=== PATIENT | male | born 1975 | race Caucasian/White ===

== ENCOUNTER 2016-10-29 05:18 | Inpatient (IN) | payer BC ==
[~2016-10-29] VITALS: Ht 175.3 cm; Wt 79.4 kg
[~2016-10-29 05:18] MED LIST: INDERAL LA160 MG PO; PAXIL20 MG PO; ROXICODONE5 MG PO
[2016-10-29 05:46] VITALS: BP 145/89
[2016-10-29 12:00] VITALS: BP 125/79
[2016-10-29 15:57] VITALS: BP 115/64
[2016-10-29 20:14] VITALS: BP 108/57
[2016-10-30 04:38] VITALS: BP 105/56
[2016-10-30] MEDS ORDERED: CYCLOBENZAPRINE10 MG PO (07:19)
[2016-10-30] MEDS ORDERED: HYDROCODON-ACE1 EAC7 PO (07:19)
[2016-10-30 08:30] VITALS: BP 113/60
== END 2016-10-30 10:10 | disposition home or self-care (01) | DRG 460 ==
LOC: 2SOUTH 05:18 → 3EAST 11:27 → 2SOUTH 11:58 → 3EAST 10-30 10:10
PROC: 0SG30A0 Fusion of Lumbosacral Joint with Interbody Fusion Device, Anterior Approach, Anterior Column, Open Approach (ICD-10-PCS; principal; 2016-10-29)
DX: M99.03 Segmental and somatic dysfunction of lumbar region (principal); M54.17 Radiculopathy, lumbosacral region; Z87.891 Personal history of nicotine dependence; F32.9 Major depressive disorder, single episode, unspecified; F41.9 Anxiety disorder, unspecified
CPT/HCPCS: 72100; 76000; 86900; 86901; J0330; J0690; J1100; J1170; J2250; J2405; J3010; J3480